=== PATIENT | male | born 1945 | race Caucasian/White ===

== ENCOUNTER 2023-11-09 19:52 | Inpatient (IN) | payer MEDICARE, OTHER ==
[~2023-11-09] VITALS: Ht 177.8 cm; Wt 56.2 kg
[2023-11-09 20:22] LABS: Hematocrit 40.8 % (37.0-53.0); Mean Corpuscular HGB 29.2 pg (26.0-34.0); Mean Corpuscular HGB Conc 31.9 g/dL (31.5-36.5); Mean Corpuscular Volume 92 fL (80-100); Platelet Count 179 K/mm3 (150-400); RDW Coefficient Variation 14.7 % (11.7-14.2); RDW Standard Deviation 49.5 fL (35.1-46.3); Red Blood Cell Count 4.45 M/mm3 (4.30-5.90); White Blood Cell Count 23.61 K/mm3 (4.00-11.30)
[2023-11-09 20:43] LABS: Albumin, Blood 3.5 g/dL (3.4-5.0); Bilirubin, Total 0.7 mg/dL (0.1-1.0); Bun/Creatinine Ratio 22.1 (12.0-20.0); Calcium, Blood 8.3 mg/dL (8.5-10.1); Creatinine, Blood 0.81 mg/dL (0.60-1.20); Globulin, Blood 3.5 g/dL (2.2-4.0); Potassium, Blood 4.4 mmol/L (3.5-5.5)
[2023-11-09 20:44] LABS: BASOPHILS PERCENT MAN 0 % (0-2); EOSINOPHILS PERCENT MAN 3 % (0-6); LYMPHOCYTES ABSOLUTE MAN 4.72 K/mm3 (0.84-5.20); LYMPHOCYTES PERCENT MAN 20 % (21-46); MONOCYTES ABSOLUTE MAN 2.36 K/mm3 (0.16-1.47); MONOCYTES PERCENT MAN 10 % (4-13); NEUTROPHILS ABSOLUTE MAN 15.81 K/mm3 (1.96-9.15); SEG NEUTROPHILS PERCENT MAN 67 % (41-73); TOTAL CELLS COUNTED 100
[2023-11-09 21:01] LABS: Influenza A, PCR NEGATIVE (NEGATIVE); Influenza B, PCR NEGATIVE (NEGATIVE); Resp Syncytial Virus, PCR NEGATIVE (NEGATIVE); SARS-Cov-2 (COVID-19) PCR, MMC NEGATIVE (NEGATIVE)
[2023-11-09] MEDS ORDERED: CefTRIAXone Sodium 1,000 MG in NS 50 ML IV ONE (21:05)
[2023-11-09] MEDS ORDERED: Azithromycin 500 MG in NS 250 ML IV ONE (21:05)
[2023-11-09] MEDS ORDERED: NS 1,000 ML IV SCH (22:10)
[2023-11-09] MEDS ORDERED: Ondansetron HCl 2 MG / ML 2ML Vial IV PRN (22:10)
[2023-11-09] MEDS ORDERED: Ipratropium/Albuterol SulF 2.5-0.5MG/3 ML Amp INH PRN (22:15)
[2023-11-09] MEDS ORDERED: Acetaminophen 325 MG TABLET PO PRN (22:15)
[2023-11-09 22:44] LABS: International Normalized Ratio 1.04; Prothrombin Time Results 11.1 Sec (9.7-11.5)
[2023-11-09] MEDS ORDERED: Enoxaparin 40 MG/0.4 ML SYR SC SCH (23:00)
[2023-11-09] MEDS ORDERED: MIRALAX11914 PO (23:40)
[2023-11-09] MEDS ORDERED: MONT10T PO (23:41)
[2023-11-09] MEDS ORDERED: SPIRIVA RESPIMAT4 G3 INH (23:41)
[2023-11-09] MEDS ORDERED: VITAMIN B121000 MCG PO (23:41)
[2023-11-09] MEDS ORDERED: LOW DOSE ASPIRI81 M1 PO (23:42)
[2023-11-09] MEDS ORDERED: CARBIDOPA-LEVO1 EA15 PO (23:42)
[2023-11-09] MEDS ORDERED: RIVASTIGMINE PO (23:43)
[2023-11-09] MEDS ORDERED: TRAZ50 PO (23:43)
[2023-11-09 23:46] VITALS: BP 130/93
--- NOTE | 2023-11-10 01:39 | NUR ---
Admit: Late entry for 11/09/23 @2340 Patient was recieved from ER via stretcher. Patient is pleasantly confused. Oriented to self and place. No reports of pain, VSS. Patient is oriented to room and call stoddard. Bed alarm is on for safety.
[2023-11-10 06:29] LABS: Hematocrit 36.6 % (37.0-53.0); Hemoglobin 11.8 g/dL (13.5-17.5); Mean Corpuscular HGB 29.6 pg (26.0-34.0); Mean Corpuscular HGB Conc 32.2 g/dL (31.5-36.5); Mean Corpuscular Volume 92 fL (80-100); Mean Platelet Volume 10.6 fL (9.1-12.4); Platelet Count 153 K/mm3 (150-400); RDW Coefficient Variation 14.6 % (11.7-14.2); RDW Standard Deviation 49.3 fL (35.1-46.3); Red Blood Cell Count 3.98 M/mm3 (4.30-5.90); White Blood Cell Count 18.46 K/mm3 (4.00-11.30)
[2023-11-10 06:50] LABS: Albumin, Blood 2.9 g/dL (3.4-5.0); Bilirubin, Total 0.6 mg/dL (0.1-1.0); Calcium, Blood 7.9 mg/dL (8.5-10.1); Creatinine, Blood 0.8 mg/dL (0.60-1.20); Potassium, Blood 3.7 mmol/L (3.5-5.5); Total Protein, Blood 5.9 g/dL (6.4-8.2)
[2023-11-10 07:21] VITALS: BP 135/75
--- NOTE | 2023-11-10 07:32 | NUR ---
PATIENT RESTED WELL THIS SHIFT, HAS BEEN NPO AWAITING SWALLOW EVAL. IVF ARE INFUSING WITHOUT DIFFICULTY. PATIENT HAS BEEN CONTINENT THIS SHIFT WITH ASSISTANCE GIVEN TO THE BATHROOM. PATIENT DOES NOT USE CALLBELL, BED ALARM IS ON FOR SAFETY.
[2023-11-10 07:42] LABS: BAND PERCENT MAN 1 % (0-8); BASOPHILS PERCENT MAN 0 % (0-2); EOSINOPHILS ABSOLUTE MAN 0.36 K/mm3 (0.00-0.68); EOSINOPHILS PERCENT MAN 2 % (0-6); LYMPHOCYTES ABSOLUTE MAN 7.75 K/mm3 (0.84-5.20); LYMPHOCYTES PERCENT MAN 42 % (21-46); MONOCYTES ABSOLUTE MAN 0.92 K/mm3 (0.16-1.47); MONOCYTES PERCENT MAN 5 % (4-13); NEUTROPHILS ABSOLUTE MAN 9.41 K/mm3 (1.96-9.15); SEG NEUTROPHILS PERCENT MAN 50 % (41-73); TOTAL CELLS COUNTED 100
--- NOTE | 2023-11-10 10:58 | NUR ---
PATIENT RETURNED FROM BARIUM SWALLOW STUDY AT 1058. PATIENT RESTING COMFORTABLY IN BED, CALL LIGHT WITHIN REACH, IV FLUIDS INFUSING. NO CONCERNS AT THIS TIME.
[2023-11-10] MEDS ORDERED: Tiotropium Bromide 2.5 MCG/ACT MIST INHAL (10 ACT/4 GM) INH SCH (11:30)
[2023-11-10] MEDS ORDERED: CefTRIAXone Sodium 1,000 MG in NS 100 ML IV SCH (12:00)
[2023-11-10] MEDS ORDERED: Levodopa/Carbidopa 100 / 25 MG Tab PO SCH (14:00)
[2023-11-10 15:21] VITALS: BP 135/71
[2023-11-10] MEDS ORDERED: Azithromycin 500 MG in NS 250 ML IV SCH (16:00)
--- NOTE | 2023-11-10 16:50 | NUR ---
SHIFT SUMMARY PATIENT A/OX2-3 THROUGHOUT THE DAY. PATIENT'S DAUGHTER AND GRANDSON CAME TO VISIT TWICE TODAY. DAUGHTER STATES PATIENT LIVES WITH HER IN [place] AND THEY WERE HERE IN [place] VISITING THE PATIENT'S BROTHER. UNABLE TO OBTAIN SPUTUM SAMPLE THIS SHIFT. SPEECH THERAPY ASSESSED PATIENT AND RECOMMENDED MODIFIED BARIUM SWALLOW STUDY. AFTER SWOLLOW STUDY PATIENT WAS PLACED ON SOFT BITE SIZED DIET WITH THIN LIQUIDS, MEDS WHOLE. AFTER ADMINISTRATING MEDS THIS AFTERNOON, I WOULD RECOMMEND CRUSHING MEDICATION. PATIENT WOULD POCKETTED THE PILLS IN HIS CHEEKS. TELEMETRY IN PLACE, NO EVENTS NOTED. PATIENT CONTINUES WITH PERSISTENT MOIST COUGH. NO OTHER CONCERNS AT THIS TIME.
--- NOTE | 2023-11-10 16:59 | NUR ---
REVIEWED AND AGREE WITH ALL NOTES AND ASSESSMENTS BY LIANET HOOVER.
[2023-11-10] MEDS ORDERED: Rivastigmine Tartrate 1.5 MG Cap PO SCH (17:00)
[2023-11-10 20:06] VITALS: BP 153/76
[2023-11-10] MEDS ORDERED: TraZODone HCl 100 MG Tab PO SCH (21:00)
[2023-11-11 03:00] VITALS: BP 146/77
[2023-11-11 06:25] LABS: Hematocrit 36.3 % (37.0-53.0); Hemoglobin 11.7 g/dL (13.5-17.5); Mean Corpuscular HGB 29.8 pg (26.0-34.0); Mean Corpuscular HGB Conc 32.2 g/dL (31.5-36.5); Mean Corpuscular Volume 92 fL (80-100); Mean Platelet Volume 10.4 fL (9.1-12.4); Platelet Count 167 K/mm3 (150-400); RDW Coefficient Variation 14.6 % (11.7-14.2); RDW Standard Deviation 49.4 fL (35.1-46.3); Red Blood Cell Count 3.93 M/mm3 (4.30-5.90); White Blood Cell Count 14.26 K/mm3 (4.00-11.30)
[2023-11-11 06:41] LABS: Albumin, Blood 2.6 g/dL (3.4-5.0); Anion Gap 8 mmol/L (3-11); Blood Urea Nitrogen 12 mg/dL (8-24); Bun/Creatinine Ratio 16.1 (12.0-20.0); CO2, Blood 25 mmol/L (21-32); Chloride, Blood 117 mmol/L (98-108); Creatinine, Blood 0.74 mg/dL (0.60-1.20); Glomerular Filtration Rate 92 (60-); Glucose, Blood 87 mg/dL (70-99); Magnesium, Blood 2.1 mg/dL (1.6-2.4); Phosphorus, Blood 2.3 mg/dL (2.5-4.9); Potassium, Blood 3.8 mmol/L (3.5-5.5); Sodium, Blood 146 mmol/L (136-145)
--- NOTE | 2023-11-11 06:41 | NUR ---
FORECLOSURE CLERK SUMMARY PT A/OX3. PLEASANT, CONFUSED/FORGETFUL. NO ACUTE CHANGES. PT ABLE TO MAKE NEEDS KNOWN WHEN PROMPTED. SENT SPUTUM SAMPLE TO LAB--NOT ADEQUATE SAMPLE, CALL BACK FROM LAB TO REQUEST NEW SAMPLE. EDUCATION PROVIDED TO PT AND NEW CUP PLACED IN ROOM. PT 1 PA WHEN OOB WITH FWW. PT SHAKY/UNSTEADY ON FEET. CALL LIGHT ACCESSIBLE.
[2023-11-11 07:26] VITALS: BP 168/91
[2023-11-11] MEDS ORDERED: Polyethylene Glycol 3350 17 gm PO PRN (09:00)
[2023-11-11] MEDS ORDERED: Aspirin 81 MG TabEC PO SCH (09:00)
[2023-11-11] MEDS ORDERED: Montelukast Sodium 10 MG Tab PO SCH (09:00)
[2023-11-11] MEDS ORDERED: DOXY100 PO (11:01)
--- NOTE | 2023-11-11 15:03 | NUR ---
DISCHARGE SUMMARY PATIENT DISCHARGED THIS SHIFT WITH DAUGHTER. MEDS FAXED INTO [facility]. IV'S DISCONTINUED WITH NO COMPLICATIONS. DISCHARGE PACKET GIVEN AND REVIEWED WITH DAUGHTER, VERBALIZED UNDERSTANDING. DAUGHTER STATED HE HAS PCP IN [place] AND WILL MAKE FOLLOW UP APPT WHEN THEY GET HOME.
== END 2023-11-11 13:57 | disposition home or self-care (01) | DRG 871 ==
LOC: ER 19:52 → MEDS 21:27 → ENPENDDIS 11-11 11:02 → MEDS 11-11 13:57
PROVIDERS: Internal Medicine; Nurse Practitioner; ADMIT Internal Medicine
DX: A41.9 Sepsis, unspecified organism (principal); J18.9 Pneumonia, unspecified organism; J69.0 Pneumonitis due to inhalation of food and vomit; J44.0 Chronic obstructive pulmonary disease with (acute) lower respiratory infection; G20.A1 Parkinson's disease without dyskinesia, without mention of fluctuations; F02.80 Dementia in other diseases classified elsewhere, unspecified severity, without behavioral disturbance, psychotic disturbance, mood disturbance, and anxiety; Z79.82 Long term (current) use of aspirin; Z79.899 Other long term (current) drug therapy; Z88.5 Allergy status to narcotic agent
CPT/HCPCS: 0241U; 36415; 71046; 74230; 80053; 80069; 83605; 83735; 83880; 84145; 85025; 85027; 85610; 92526; 92610; 92611; 93005; 93010; 94640; 94664; 94760; 96374; 99285-25; A9270; J0456; J0696; J1650; J7030; J7050